=== PATIENT | male | born 1950 | race Caucasian/White ===

== ENCOUNTER 2018-08-14 13:24 | Outpatient (RCR) | payer OTHER ==
[2018-07-24 16:38] LABS: BASOPHILS % (AUTO) 0 % (0-10); EOSINOPHILS # (AUTO) 0.2 10^3/uL (0.0-0.3); EOSINOPHILS % (AUTO) 3 % (0-10); HEMATOCRIT 42 % (40-54); HEMOGLOBIN 14.3 G/DL (13.3-17.7); LYMPHOCYTES # (AUTO) 2.2 X 10^3 (1.0-4.0); LYMPHOCYTES % (AUTO) 32 % (12-44); MEAN CORPUSCULAR HEMOGLOBIN 32 PG (25-34); MEAN CORPUSCULAR HGB CONC 34 G/DL (32-36); MEAN CORPUSCULAR VOLUME 93 FL (80-99); MEAN PLATELET VOLUME 9.9 FL (7.4-10.4); MONOCYTES # (AUTO) 0.6 X 10^3 (0.0-1.0); MONOCYTES % (AUTO) 9 % (0-12); NEUTROPHILS # (AUTO) 3.9 X 10^3 (1.8-7.8); NEUTROPHILS % (AUTO) 56 % (42-75); PLATELET COUNT 87 10^3/uL (130-400); RED CELL DISTRIBUTION WIDTH 15.1 % (10.0-14.5); WHITE BLOOD COUNT 6.8 10^3/uL (4.3-11.0)
[2018-07-24 16:50] LABS: INR 1.8 (0.8-1.4); PROTHROMBIN TIME PATIENT 21.1 SEC (12.2-14.7)
[2018-07-24 16:57] LABS: BAND NEUTROPHILS 0 %; BASOPHILS % (MANUAL) 0 %; EOSINOPHILS % (MANUAL) 3 %; LYMPHOCYTES % (MANUAL) 29 %; MONOCYTES % (MANUAL) 5 %; NEUTROPHILS % (MANUAL) 63 %; RBC MORPH NORMAL
[2018-07-24 17:05] LABS: ALANINE AMINOTRANSFERASE 27 U/L (0-55); ALBUMIN 4.2 GM/DL (3.2-4.5); ALKALINE PHOSPHATASE 112 U/L (40-136); BILIRUBIN,TOTAL 0.7 MG/DL (0.1-1.0); BUN/CREATININE RATIO 16; CALCIUM 9.4 MG/DL (8.5-10.1); CARBON DIOXIDE 23 MMOL/L (21-32); CHLORIDE 103 MMOL/L (98-107); CREATININE SERUM 0.91 MG/DL (0.60-1.30); GFR ESTIMATED > 60; GLUCOSE 149 MG/DL (70-105); POTASSIUM 3.3 MMOL/L (3.6-5.0); SODIUM 133 MMOL/L (135-145); TOTAL PROTEIN 7.6 GM/DL (6.4-8.2)
[2018-07-28 06:46] LABS: HEPATITIS C ANTIBODY C Non-Reactive (Non-Reactive)
== END 2018-10-22 | disposition home or self-care (01) ==
LOC: ONC 13:24
PROVIDERS: ATTEND Internal Medicine Hematology & Oncology
DX: D69.6 Thrombocytopenia, unspecified (principal); D64.9 Anemia, unspecified; I48.91 Unspecified atrial fibrillation; J44.9 Chronic obstructive pulmonary disease, unspecified; I10 Essential (primary) hypertension; R91.8 Other nonspecific abnormal finding of lung field; F17.210 Nicotine dependence, cigarettes, uncomplicated; E66.9 Obesity, unspecified; Z68.34 Body mass index [BMI] 34.0-34.9, adult; Z79.01 Long term (current) use of anticoagulants; Z79.899 Other long term (current) drug therapy
CPT/HCPCS: 36415; 80053; 80074; 82607; 82728; 82746; 83540; 85007; 85027; 85610; 99213; 99214

== ENCOUNTER → 2019-08-06 | Outpatient (CLI) | payer OTHER ==
--- NOTE | 2019-08-06 10:01 | Diagnostic Imaging Report ---
PROCEDURE: CT abdomen and pelvis without contrast. TECHNIQUE: Multiple contiguous axial images were obtained through the abdomen and pelvis without the use of intravenous contrast. Auto Exposure Controls were utilized during the CT exam to meet ALARA standards for radiation dose reduction. INDICATION: Chronic microhematuria. No prior studies are available for comparison. There are interstitial fibrotic changes in both lung bases. There is a density in the right lower lobe just above the diaphragm measuring 2 cm in size. A small lung mass cannot be entirely excluded. This was not definitely seen on prior PET/CT study from 08/02/2015. The liver does have somewhat nodular contour, raising question of cirrhosis. No discrete liver mass is detected. Gallbladder is unremarkable. No biliary ductal dilatation is seen. Pancreas and spleen are unremarkable. No discrete adrenal mass is seen. There is some left adrenal generalized enlargement. Both kidneys contain cortical low densities, suggestive of cysts. No definite calculi are seen. There is no hydronephrosis. Aorta is heavily calcified but non-aneurysmal. Spleen is mildly enlarged at 14.7 cm. No central retroperitoneal or mesenteric lymphadenopathy is seen. The bowel loops are of normal caliber. There is extensive diverticulosis of the descending and sigmoid colon but no evidence of acute diverticulitis. There is a small amount of free fluid in the perihepatic region as well as a small amount of free fluid in the pelvis. No well-formed fluid collection is identified. Bladder is unremarkable. Prostate is enlarged. No definite pelvic lymphadenopathy is seen. IMPRESSION: 1. 2 cm right lower lobe pulmonary nodular density. Small lung neoplasm cannot be entirely excluded. PET/CT would be useful for further evaluation. 2. Nodular contour to the liver, raising question of cirrhosis. No discrete liver mass is detected. 3. Bilateral renal cortical low density suggestive of cysts. No calculi or hydronephrosis is seen. 4. Uncomplicated diverticulosis. 5. Prostatomegaly. 6. Mild abdominal and pelvic ascites. Dictated by: Dictated on workstation # [id number]
== END ==
LOC: RAD FS 09:25
PROVIDERS: ATTEND Urology
DX: R91.8 Other nonspecific abnormal finding of lung field (principal); K57.30 Diverticulosis of large intestine without perforation or abscess without bleeding; N40.0 Benign prostatic hyperplasia without lower urinary tract symptoms; R18.8 Other ascites
CPT/HCPCS: 74176

== ENCOUNTER → 2020-06-20 | Outpatient (CLI) | payer OTHER ==
[2020-06-20 12:03] LABS: ABG BASE EXCESS 0.5 MMOL/L (-2.5-2.5); ABG OXYGEN SATURATION 94 % (94-100); ABG PCO2 36 MMHG (35-45); ABG PH 7.44 (7.37-7.43); ABG PO2 66 MMHG (79-93); ABG TCO2 25.4 MMOL/L (21.0-31.0); ALLENS TEST YES-POS; INSPIRED O2 5L; PATIENT TEMP 36.8; VENTILATOR NO
== END ==
LOC: CATH 11:20
PROVIDERS: ATTEND Nurse Practitioner Family
DX: Z01.812 Encounter for preprocedural laboratory examination (principal); Z20.822 Contact with and (suspected) exposure to COVID-19
CPT/HCPCS: 82805; U0002; 87635

== ENCOUNTER → 2020-06-20 | Outpatient (CLI) | payer OTHER ==
[~2020-06-20] MED LIST: CATHETER FLUSH 10 ML SYR IV PRN; HOLD METFORMIN - RECEIVED CONTRAST 20 ML VIAL IV SCH; IOHEXOL 350 MG/ML 100 ML (OMNIPAQUE 350) VIAL IV ONE; NS 100 ML (IVPB) BAG IV ONE
--- NOTE | 2020-06-20 12:17 | Diagnostic Imaging Report ---
PROCEDURE: CT chest, abdomen, and pelvis with contrast. TECHNIQUE: Multiple contiguous axial images were obtained through the chest, abdomen, and pelvis after the administration of intravenous contrast. Auto Exposure Controls were utilized during the CT exam to meet ALARA standards for radiation dose reduction. INDICATION: Lung mass. COMPARISON: There are no prior CT chest examinations available for comparison. FINDINGS: The CT abdomen/pelvis exam performed at [facility] on 08/06/2019 did note a 2 cm right lower lobe pulmonary nodule. The possibility that this was neoplastic in nature was raised. On this exam that nodule has increased in size and now measures 3.1 x 4.1 cm. Consequently this mass should be considered neoplastic until proven otherwise. There is also a 3.3 x 3.0 cm subcarinal mass. This area was not included on the prior exam but this finding may well be neoplastic as well. There is no other mediastinal or hilar adenopathy noted. There is no other lung mass identified. The chronic pulmonary changes involving the lung bases seen previously are again evident. There are also faint groundglass densities in both upper lobes as well as bullous/emphysematous disease of both upper lobes. There is no confluent pneumonia identified nor is there any sign of a pleural effusion. The heart is enlarged but stable. Coronary artery calcifications are noted. The aorta is not abnormally dilated and there is no sign of a dissection. There is no defect within the pulmonary arteries to indicate a pulmonary embolus. The thyroid gland where visualized is unremarkable. Images through the abdomen again show that the liver is mildly enlarged but stable in size when compared to the prior study. The liver does have somewhat of a nodular contour and the possibility of cirrhosis should be considered. The spleen, pancreas, adrenals, gallbladder, kidneys, aorta and inferior vena cava show no sign of an acute abnormality. The suspected renal cysts seen on the prior study are again evident and no different. The stomach is partially filled with fluid and difficult to assess. There is no pelvic mass or free fluid collection noted. The urinary bladder and prostate gland are grossly unremarkable. There is diverticulosis of the sigmoid colon but there is no sign of acute diverticulitis. The appendix was visualized and is not abnormally thickened. The bone windows show no evidence for a fracture or for a destructive lesion. IMPRESSION: 1. In the interval since the prior exam the mass in the right lung base has increased in size and consequently, should be considered neoplastic until proven otherwise. There may also be neoplastic involvement of the subcarinal region. If further imaging is desired, then PET CT would be recommended. 2. There is no other evidence for malignancy involving the chest, abdomen or pelvis and there is no sign of an acute abnormality. 3. There are chronic pulmonary changes present as well as cardiomegaly and coronary artery disease. 4. The appearance of the liver does raise the question of cirrhosis. Dictated by: Dictated on workstation # [id number]
== END ==
LOC: RT 10:59
PROVIDERS: ATTEND Nurse Practitioner Family
DX: Z13.83 Encounter for screening for respiratory disorder NEC (principal); R93.89 Abnormal findings on diagnostic imaging of other specified body structures; I51.7 Cardiomegaly; I25.10 Atherosclerotic heart disease of native coronary artery without angina pectoris
CPT/HCPCS: 36600; 71260; 74177

== ENCOUNTER → 2020-06-21 | Outpatient (CLI) | payer OTHER ==
[~2020-06-21] MED LIST changes: -CATHETER FLUSH 10 ML SYR IV PRN; -HOLD METFORMIN - RECEIVED CONTRAST 20 ML VIAL IV SCH; -IOHEXOL 350 MG/ML 100 ML (OMNIPAQUE 350) VIAL IV ONE; -NS 100 ML (IVPB) BAG IV ONE; +RT-ALBUTEROL SULF 2.5 MG/3 ML PRE-MIX VIAL INH ONE
== END ==
LOC: RT 09:35
PROVIDERS: ATTEND Internal Medicine Critical Care Medicine
DX: Z13.83 Encounter for screening for respiratory disorder NEC (principal)
CPT/HCPCS: 94060; 94726; 94729

== ENCOUNTER → 2020-06-27 | Outpatient (CLI) | payer OTHER | LOC: LABNPT 08:37 | PROVIDERS: ATTEND Internal Medicine Critical Care Medicine | DX: Z01.89 Encounter for other specified special examinations (principal); Z20.822 Contact with and (suspected) exposure to COVID-19 | CPT/HCPCS: 87635 ==

== ENCOUNTER 2020-06-29 06:56 | Day surgery (SDC) | payer OTHER ==
[~2020-06-29] VITALS: Ht 182.9 cm; Wt 102.3 kg
[2020-06-29] VITALS (10 sets, daily range): BP systolic 103–142; BP diastolic 63–100
[2020-06-29] MEDS ORDERED: LIDOCAINE PF 1% 2 ML VIAL IJ ONE (06:57)
[2020-06-29] MEDS ORDERED: LIDOCAINE PF 2% 5 ML (XYLOCAINE) VIAL INJ ONE (06:57)
[2020-06-29] MEDS ORDERED: proPOfol 200 MG/20 ML (DIPRIVAN) VIAL IV ONE (06:58)
[2020-06-29] MEDS ORDERED: fentaNYL INJECTION 100 MCG/2 ML AMP ONE (06:59)
[2020-06-29] MEDS ORDERED: LIDOCAINE PF 2% 5 ML (XYLOCAINE) VIAL ONE (06:59)
[2020-06-29] MEDS ORDERED: ONDANSETRON 4 MG/2 ML (SDV) Z0FRAN ONE (06:59)
[2020-06-29] MEDS ORDERED: MIDAZOLAM 2 MG/2 ML (VERSED) VIAL ONE (06:59)
[2020-06-29] MEDS ORDERED: ROCURONIUM 10 MG/ML 5 ML SYRINGE IV ONE (06:59)
[2020-06-29] MEDS ORDERED: LACTATED RINGERS 1,000 ML IV ONE (07:04)
[2020-06-29] MEDS ORDERED: LACTATED RINGERS 1,000 ML IV STA (07:07)
[2020-06-29] MEDS ORDERED: RT-ALBUTEROL SULF 2.5 MG/3 ML PRE-MIX VIAL ONE (07:09)
--- NOTE | 2020-06-29 07:51 | Progress Note-Pre Operative ---
Pre-Operative Progress Note H&P Reviewed The H&P was reviewed, patient examined and no changes noted. Time Seen by Provider: 08:00 Date H&P Reviewed: Jun 29, 2020 Time H&P Reviewed: 07:50 Pre-Operative Diagnosis: Lung mass FRITZ SU DO Jun 29, 2020 07:51
[2020-06-29] MEDS ORDERED: NEOSTIGMINE 3 MG/3 ML VIAL ONE (08:23)
[2020-06-29] MEDS ORDERED: GLYCOPYRROLATE 0.2 MG/ML (ROBINUL) 2 ML VIAL ONE (08:23)
--- NOTE | 2020-06-29 08:44 | Pulmonary Procedures ---
Pulmonary Procedures Date of Procedure Date of Service: Jun 29, 2020 Bronch Bronchoscopy assisted with fluoroscopy bilateral wash, RLL BAL, mainstem ivonne brush were obtained. EBUS scope then advanced Mediastinum US and transbronchial needle bx of station 7 lymph nodes obtained under direct US guidance. Preop DX: [mediastinal lymphadenopathy and lung mass PostOP DX: same. No endobronchial lesion noted. Complications: None Pt was sedated per anesthesia. Bronchoscopy was advanced through the ED tube and an anatomical undertaken down to the segmental bronchi bilaterally. No endobronchial lesions noted. Bronchoscopy assisted with fluoroscopy bilateral wash, RLL BAL, mainstem ivonne brush were obtained. EBUS scope then advanced Mediastinum US and transbronchial needle bx of station 7 lymph nodes obtained under direct US guidance. Pt tolerated procedure well. No complications noted. FRITZ SU DO Jun 29, 2020 08:44
--- NOTE | 2020-06-29 09:12 | Diagnostic Imaging Report ---
Indication: Post bronchoscopy. Frontal chest obtained at 8:56 a.m. There is no previous study for comparison. There is cardiomegaly. There is central vascular congestion with interstitial edema and/or fibrotic change. There is no pneumothorax post bronchoscopy. Impression: Diffuse interstitial infiltrate versus edema versus fibrotic change. Cardiomegaly and central vascular congestion. There is no pneumothorax following bronchoscopy. Dictated by: Dictated on workstation # [id number]
--- NOTE | 2020-06-29 09:18 | Diagnostic Imaging Report ---
INDICATION: Fluoroscopy utilized by Dr. Wade for bronchoscopy. FINDINGS: Single film shows bronchoscope present in the right upper lung. IMPRESSION: 1.8 seconds fluoroscopy utilized for bronchoscopy. Dictated by: Dictated on workstation # [id number]
[2020-06-29] MEDS ORDERED: APIX2.5T PO (09:43)
[2020-06-29] MEDS ORDERED: IPRA3AMP31 IH (09:43)
[2020-06-29] MEDS ORDERED: FLUO20CA42 PO (09:43)
[2020-06-29] MEDS ORDERED: OMEP20TA7 PO (09:43)
[2020-06-29] MEDS ORDERED: LORA-53 PO (09:43)
[2020-06-29] MEDS ORDERED: PRAZ2CAP2 PO (09:43)
[2020-06-29] MEDS ORDERED: NITR0.3T7 SL (09:43)
[2020-06-29] MEDS ORDERED: MONT10TA97 PO (09:43)
[2020-06-29] MEDS ORDERED: ROSU10TA28 PO (09:43)
[2020-06-29] MEDS ORDERED: DOCU100C37 PO (09:43)
[2020-06-29] MEDS ORDERED: ALPR0.254 PO (09:43)
[2020-06-29] MEDS ORDERED: FERR325T24 PO (09:43)
[2020-06-29] MEDS ORDERED: FINA5TAB6 PO (09:43)
[2020-06-29] MEDS ORDERED: HYDR-3857 PO (09:43)
[2020-06-29] MEDS ORDERED: DILT-27 PO (09:43)
[2020-06-29] MEDS ORDERED: CARV6.252 PO (09:43)
[2020-06-29] MEDS ORDERED: LISI2.5T PO (09:43)
[2020-06-29] MEDS ORDERED: [UNRECOGNIZED DRUG - CODE] PO (09:43)
--- NOTE | 2020-06-29 10:32 | Anesthesia-General Post-Op ---
General Patient Condition Mental Status/LOC: Same as Preop Cardiovascular: Satisfactory Nausea/Vomiting: Absent Respiratory: Satisfactory Pain: Controlled Complications: Absent Post Op Complications Complications None Follow Up Care/Instructions Patient Instructions None needed. Anesthesia/Patient Condition Patient Condition Patient is doing well, no complaints, stable vital signs, no apparent adverse anesthesia problems. No complications reported per nursing. TED ONEAL CRNA Jun 29, 2020 10:32
== END 2020-06-29 10:10 | disposition home or self-care (01) ==
LOC: ENDO 06:56
PROVIDERS: ATTEND Internal Medicine Critical Care Medicine
DX: R59.1 Generalized enlarged lymph nodes (principal); I10 Essential (primary) hypertension; I25.10 Atherosclerotic heart disease of native coronary artery without angina pectoris; I48.91 Unspecified atrial fibrillation; J44.9 Chronic obstructive pulmonary disease, unspecified; K21.9 Gastro-esophageal reflux disease without esophagitis; D64.9 Anemia, unspecified; M19.90 Unspecified osteoarthritis, unspecified site; E66.9 Obesity, unspecified; Z68.30 Body mass index [BMI] 30.0-30.9, adult; Z79.899 Other long term (current) drug therapy; Z88.5 Allergy status to narcotic agent; Z88.8 Allergy status to other drugs, medicaments and biological substances
CPT/HCPCS: 71045; 76000; 87015; 87070; 87101; 87116; 87205; 87206; 88112; 88173; 88305; 88312; 94640

== ENCOUNTER 2020-07-19 08:08 | Outpatient (CLI) | payer OTHER ==
[~2020-07-19] VITALS: Ht 182.9 cm; Wt 103.6 kg
[2020-07-19] VITALS (15 sets, daily range): BP systolic 121–145; BP diastolic 66–92
[~2020-07-19 08:08] MED LIST changes: +ALPR0.254 PO; +APIX2.5T PO; +CARV6.252 PO; +DILT-27 PO; +DOCU100C37 PO; +FERR325T24 PO; +FINA5TAB6 PO; +FLUO20CA42 PO; +HYDR-3857 PO; +IPRA3AMP31 IH; +LISI2.5T PO; +LORA-53 PO; +MONT10TA97 PO; +NITR0.3T7 SL; +OMEP20TA7 PO; +PRAZ2CAP2 PO; +ROSU10TA28 PO; -RT-ALBUTEROL SULF 2.5 MG/3 ML PRE-MIX VIAL INH ONE; +[UNRECOGNIZED DRUG - CODE] PO
[2020-07-19] MEDS ORDERED: NS IV 1000 ML 1,000 ML IV STA (08:13)
[2020-07-19] MEDS ORDERED: MIDAZOLAM 2 MG/2 ML (VERSED) VIAL IVP ONE (08:15)
[2020-07-19] MEDS ORDERED: LIDOCAINE 1% INJ 20 ML 20 ML VIAL INJ ONE (08:15)
[2020-07-19] MEDS ORDERED: fentaNYL INJECTION 100 MCG/2 ML AMP IVP ONE (08:15)
[2020-07-19] MEDS ORDERED: CATHETER FLUSH 10 ML SYR IV PRN (08:30)
[2020-07-19 08:38] LABS: BASOPHILS % (AUTO) 0 % (0-10); EOSINOPHILS # (AUTO) 0.1 10^3/uL (0.0-0.3); EOSINOPHILS % (AUTO) 2 % (0-10); HEMATOCRIT 35 % (40-54); HEMOGLOBIN 11.7 g/dL (13.3-17.7); LYMPHOCYTES # (AUTO) 1.1 10^3/uL (1.0-4.0); LYMPHOCYTES % (AUTO) 19 % (12-44); MEAN CORPUSCULAR HEMOGLOBIN 32 pg (25-34); MEAN CORPUSCULAR HGB CONC 33 g/dL (32-36); MEAN CORPUSCULAR VOLUME 94 fL (80-99); MEAN PLATELET VOLUME 9.6 fL (9.0-12.2); MONOCYTES # (AUTO) 0.5 10^3/uL (0.0-1.0); MONOCYTES % (AUTO) 9 % (0-12); NEUTROPHILS # (AUTO) 4.1 10^3/uL (1.8-7.8); NEUTROPHILS % (AUTO) 70 % (42-75); PLATELET COUNT 95 10^3/uL (130-400); WHITE BLOOD COUNT 5.9 10^3/uL (4.3-11.0)
[2020-07-19 08:49] LABS: INR 1.1 (0.8-1.4); PROTHROMBIN TIME PATIENT 14.4 SEC (12.2-14.7)
[2020-07-19] MEDS ORDERED: IPRA4AER IH (08:51)
[2020-07-19] MEDS ORDERED: ACHD5005 PO (08:51)
[2020-07-19] MEDS ORDERED: HYDROcodone/APAP 5 MG/325 MG (LORTAB) TAB PO PRN (11:15)
--- NOTE | 2020-07-19 11:37 | Diagnostic Imaging Report ---
INDICATION: Liver mass. Patient presents for biopsy. TECHNIQUE: All CT scans use one or more of the following dose optimizing techniques: automated exposure control, MA and/or KvP adjustment based on patient size and exam type or iterative reconstruction. DETAILS OF THE PROCEDURE: The patient was brought to the CT suite and placed on the table in the supine position. Axial imaging through abdomen was performed to evaluate for an appropriate entry site. The right abdomen was then prepped and draped in the usual sterile fashion. A small amount of 1% lidocaine was utilized for local anesthesia. The procedure was performed utilizing conscious sedation with constant patient monitoring by Radiology nursing. The patient was given a total of 50 mg of fentanyl intravenously and 0.5 mg of Versed intravenously. The total procedure time was approximately 15 minutes. An 18-gauge coaxial Temno needle was advanced and placed with its tip within the low-density lesion in the left lobe of the liver. Multiple core biopsies were obtained. The needle was then repositioned and additional core biopsies were obtained. A blood patch was injected during needle removal. Hemostasis was obtained using manual compression. The patient tolerated the procedure well and left the Department in stable condition. IMPRESSION: Successful CT-guided core biopsy of a left lobe liver mass utilizing conscious sedation. Pathology results are currently pending. Dictated by: Dictated on workstation # [id number]
--- NOTE | 2020-07-19 11:38 | Pre-Op Note & Conscious Sedat ---
Pre-Operative Progress Note H&P Reviewed The H&P was reviewed, patient examined and no changes noted. Date H&P Reviewed: Jul 19, 2020 Time H&P Reviewed: 09:00 Pre-Op Diagnosis: liver mass Conscious Sedation Pre-Proced Time 09:00 ASA Score 2 For ASA 3 and 4: Consider anesthesia and medical clearance. Also, for patients with a history of failed moderate sedation consider anesthesia. Airway Lungs Heart ASA score ASA 1: a normal healthy patient ASA 2: a patient with a mild systemic disease (mid diabetes, controlled hypertension, obesity ASA 3: a patient with a severe systemic disease that limits activity (angina, COPD, prior Myocardial infarction) ASA 4: a patient with an incapacitating disease that is a constant threat to life (CHF, renal failure) ASA 5: a moribund patient not expected to survive 24 hrs. (ruptured aneurysm) ASA 6: a declared brain- patient whose organs are being harvested. For emergent operations, add the letter E after the classification Mallampati Classification Grade 2 Sedation Plan Analgesia, Amnesia, Plan communicated to team members, Discussed options with patient/fam, Discussed risks with patient/fam The patient is an appropriate candidate to undergo the planned procedure, sedation, and anesthesia. The patient immediately re-assessed prior to indication. ELIAZAR PRITCHARD MD Jul 19, 2020 11:38
== END 2020-07-19 13:05 | disposition home or self-care (01) ==
LOC: SDC 08:08
PROVIDERS: ATTEND Nurse Practitioner Family
DX: R16.0 Hepatomegaly, not elsewhere classified (principal); R93.2 Abnormal findings on diagnostic imaging of liver and biliary tract
CPT/HCPCS: 36415; 77012; 85025; 85610; 85730; 99156

== ENCOUNTER → 2020-08-22 | Outpatient (CLI) | payer OTHER ==
[~2020-08-22] MED LIST changes: +ACHD5005 PO; +CATHETER FLUSH 10 ML SYR IV PRN; +HOLD METFORMIN - RECEIVED CONTRAST 20 ML VIAL IV SCH; +IOHEXOL 350 MG/ML 100 ML (OMNIPAQUE 350) VIAL IV ONE; +IPRA4AER IH; +MONT10TA32 PO; -MONT10TA97 PO; +NS 100 ML (IVPB) BAG IV ONE
--- NOTE | 2020-08-22 15:49 | Diagnostic Imaging Report ---
PROCEDURE: CT head with and without contrast. TECHNIQUE: Multiple contiguous axial images were obtained through the brain before and after the administration of intravenous contrast. Auto Exposure Controls were utilized during the CT exam to meet ALARA standards for radiation dose reduction. INDICATION: Dizziness. Patient has lung cancer. No prior studies are available for comparison. Ventricles and sulci are within normal limits. No sulcal effacement or midline shift is identified. No acute intra-axial or extra-axial hemorrhage is detected. No abnormal enhancement is identified following contrast administration. Cisterns are patent. Visualized paranasal sinuses are clear. IMPRESSION: Unremarkable pre and postcontrast CT of the brain. Dictated by: Dictated on workstation # [id number]
== END ==
LOC: RAD FS 10:08
PROVIDERS: ATTEND Internal Medicine Hematology & Oncology
DX: C34.91 Malignant neoplasm of unspecified part of right bronchus or lung (principal); R42 Dizziness and giddiness; R26.89 Other abnormalities of gait and mobility
CPT/HCPCS: 70470

== ENCOUNTER 2020-09-06 07:48 | Outpatient (CLI) | payer OTHER ==
[~2020-09-06] VITALS: Ht 182.9 cm; Wt 104.5 kg
[~2020-09-06 07:48] MED LIST changes: -CATHETER FLUSH 10 ML SYR IV PRN; -HOLD METFORMIN - RECEIVED CONTRAST 20 ML VIAL IV SCH; -IOHEXOL 350 MG/ML 100 ML (OMNIPAQUE 350) VIAL IV ONE; -NS 100 ML (IVPB) BAG IV ONE
== END 2020-09-06 12:53 | disposition home or self-care (01) ==
LOC: PREOP 07:48
PROVIDERS: ATTEND Surgery
DX: Z01.818 Encounter for other preprocedural examination (principal)

== ENCOUNTER 2020-09-08 09:33 | Day surgery (SDC) | payer OTHER ==
[2020-09-08] VITALS (7 sets, daily range): BP systolic 114–191; BP diastolic 73–107
[~2020-09-08] VITALS: Ht 182.9 cm; Wt 104.5 kg
[2020-09-08] MEDS ORDERED: LACTATED RINGERS 1,000 ML IV PRN (10:15)
[2020-09-08] MEDS ORDERED: ceFAZolin INJECTION 1,000 MG in WATER (STERILE) FOR INJECTION 10 ML IV ONE (10:15)
--- NOTE | 2020-09-08 10:20 | Progress Note-Pre Operative ---
Pre-Operative Progress Note H&P Reviewed The H&P was reviewed, patient examined and no changes noted. Date Seen by Provider: Sep 08, 2020 Time Seen by Provider: 10:20 Date H&P Reviewed: Sep 08, 2020 Time H&P Reviewed: 10:20 Pre-Operative Diagnosis: lung cancer REED JOHNSON DO Sep 08, 2020 10:20
[2020-09-08] MEDS ORDERED: LIDOCAINE/EPI 1%-1:100,000 (XYLOCAINE) 20ML ONE ×2 (11:04→11:44)
[2020-09-08] MEDS ORDERED: HEParin (CENTRAL IV FLUSH) 500 UNIT/5 ML SYR ONE (11:04)
[2020-09-08] MEDS ORDERED: 0.9% SODIUM CHLORIDE PF INJ 20 ML VIAL ONE (11:04)
[2020-09-08] MEDS ORDERED: PROPOFOL INJECTION 50 ML IV ONE (11:15)
[2020-09-08] MEDS ORDERED: MIDAZOLAM 2 MG/2 ML (VERSED) VIAL ONE (11:30)
--- NOTE | 2020-09-08 12:19 | Progress Note-Post Operative ---
Post-Operative Progess Note Surgeon (s)/Livestock Slaughterer (s) Surgeon REED JOHNSON DO Livestock Slaughterer: na Pre-Operative Diagnosis lung cancer Post-Operative Diagnosis same Procedure & Operative Findings Date of Procedure 09/08/20 Procedure Performed/Findings PROCEDURE: Left internal jugular port placement using ultrasound guidance. COMPLICATIONS: None. INDICATIONS: The patient is a 70 year old male with lung cancer. Patient understands the risks and benefits of port placement and wished to proceed with the procedure. Consent was signed on the chart. PROCEDURE: The patient was taken to the operating suite, was prepped and draped in the sterile fashion. A surgical pause was performed. Ultrasound was used to locate the internal jugular vein. Once located anesthetic was infiltrated above it. Using micro-access kit, the right internal vein was accessed. Dark nonpulsatile blood was withdrawn. The wire was inserted. Fluoroscopy assured proper placement. The needle was removed. The micro-access dilator was advanced over the wire and the wire was removed. The regular wire was inserted and fluoroscopy assured proper placement. The wire was then secured. Local anesthetic was used to anesthetize from the neck for tunneling down to the right chest and for pocket creation. A 15 blade scalpel was used to make an incision over the left chest. Cautery was used to dissect down to the pectoral fascia. A pocket was created with blunt dissection. The dilator sheath was then advanced over the wire under fluoroscopy and the dilator and wire were removed. The Groshong catheter was inserted through the sheath and the sheath was then removed. The Groshong wire was removed. The catheter was then tunneled to the right chest pocket. Fluoroscopy was used to cut to length and this was then attached to the port which was then placed within the pocket. The port was then accessed without difficulty. It was then flushed with saline and then heparin. The subcutaneous tissues were then reapproximated using 3-0 Vicryl. The areas were then washed and dried. Skin Affix was placed over incision. The insertion point of the neck Skin Affix was placed over the incision. The patient tolerated the procedure well without complication and was taken to recovery room in stable condition. Chest x-ray is pending. Anesthesia Type mac c local Estimated Blood Loss Estimated blood loss (mL): min Specimens/Packing Specimens Removed REED Gómez DO Sep 08, 2020 12:19
--- NOTE | 2020-09-08 12:21 | Discharge Inst-Simple/Standard ---
Discharge Inst-Standard Discharge Medications New, Converted or Re-Newed RX: RX on Chart Patient Instructions/Follow Up Plan of Care/Instructions/FU: 2-3 weeks Augusto Activity as Tolerated: No Discharge Diet: Regular Diet Other Inst to Patient Follow up Appt: Make appointment for 2-3 week. Instructions: No lifting greater than 10 pounds. No strenuous activity. May shower in 24 hours, no tub bath or soaking. Use incentive spirometer at home as directed. No Smoking Skin/Wound Care: You have special glue over your incision that will fall off on it's own. Ice pack over incision for 15 min and off 30 min and repeat for first 48 hours. This is to reduce swelling and discomfort. Symptoms to Report: Appetite Changes, Extremity Discoloration, Numbness/Tingling, Swelling Increased, Bleeding Excessive, Eyesight Changes, Pain Increased, Urine Color Change, Constipation(Persistent), Fever over 101 degree F, Pain/Pressure in chest, Urinating Difficulty, Cough Up/Vomit Blood, Heart Beat Irreg/Pounding, Pain/Pressure in jaw, Vaginal Bleeding Increase, Cramps in feet or legs, Lightheadedness, Pain/Pressure in shoulder, Diarrhea(Persistent), Memory Changes Suddenly, Questions/Concerns, Weight gain consecutive days, Dizziness/Fainting, Nausea/Vomiting, Shortness of Breath, Weight gain over 2 pounds If questions or concerns contact your physician Or seek help at emergency department. REED JOHNSON DO Sep 08, 2020 12:21
[2020-09-08] MEDS ORDERED: ONDANSETRON 4 MG/2 ML (SDV) Z0FRAN IVP PRN (12:45)
--- NOTE | 2020-09-08 12:48 | Anesthesia-General Post-Op ---
MAC Patient Condition Mental Status/LOC: Same as Preop Cardiovascular: Satisfactory Nausea/Vomiting: Absent Respiratory: Satisfactory Pain: Controlled Complications: Absent Post Op Complications Complications None Follow Up Care/Instructions Patient Instructions None needed. Anesthesiology Discharge Order Discharge Order Patient is doing well, no complaints, stable vital signs, no apparent adverse anesthesia problems. MARJAN NEWMAN DO Sep 08, 2020 12:48
--- NOTE | 2020-09-08 13:53 | Diagnostic Imaging Report ---
INDICATION: Port-A-Cath placement. COMPARISON: None. Total fluoroscopy time: 34 seconds. Total number of fluoroscopic images saved: 1 FINDINGS: Fluoroscopic guidance was provided intraoperatively during Port-A-Cath placement. Images provided show left internal jugular venous approach. Central tip of the catheter is not well visualized and may extend beyond the [id number]. Evaluation for pneumothorax is suboptimal given fluoroscopic modality. Please note, interpreting radiologist was not present during the procedure. IMPRESSION: 1. Fluoroscopic guidance provided during Port-A-Cath placement. Dictated by: Dictated on workstation # [id number]
--- NOTE | 2020-09-08 15:33 | Diagnostic Imaging Report ---
INDICATION: Status post Port-A-Cath placement. COMPARISON: 06/29/2020 FINDINGS: Single frontal radiographic view of the chest was obtained and demonstrates interval placement of left internal jugular Port-A-Cath, tip which terminates at the cavoatrial junction. Lungs continue to show diffuse coarse prominence of the interstitium. This appears to be chronic change when compared to prior exams. There is no large effusion or pneumothorax. Cardiac silhouette remains moderately enlarged. Pulmonary vasculature however is within normal limits. Osseous structures show no gross acute abnormalities. IMPRESSION: 1. New left internal jugular Port-A-Cath with tip at the cavoatrial junction. No pneumothorax. 2. Moderate cardiomegaly, but no evidence of failure. 3. Diffuse coarse interstitial opacities. Again, these appear to chronic when compared to prior exam and may be related to underlying chronic interstitial lung disease. Recurrent interstitial pneumonia or edema could be a consideration as well. Dictated by: Dictated on workstation # [id number]
== END 2020-09-08 13:45 | disposition home or self-care (01) ==
LOC: SDC 09:33
PROVIDERS: ATTEND Surgery
DX: C34.91 Malignant neoplasm of unspecified part of right bronchus or lung (principal); C78.7 Secondary malignant neoplasm of liver and intrahepatic bile duct; I10 Essential (primary) hypertension; I48.91 Unspecified atrial fibrillation; J44.9 Chronic obstructive pulmonary disease, unspecified; D64.9 Anemia, unspecified; M19.90 Unspecified osteoarthritis, unspecified site; I87.2 Venous insufficiency (chronic) (peripheral); E66.9 Obesity, unspecified; Z68.31 Body mass index [BMI] 31.0-31.9, adult; F17.210 Nicotine dependence, cigarettes, uncomplicated; Z79.899 Other long term (current) drug therapy; Z79.51 Long term (current) use of inhaled steroids; Z79.01 Long term (current) use of anticoagulants; Z88.5 Allergy status to narcotic agent; Z88.8 Allergy status to other drugs, medicaments and biological substances; Z85.828 Personal history of other malignant neoplasm of skin
CPT/HCPCS: 71045; 76000; 87081

== ENCOUNTER 2020-09-27 09:56 | Outpatient (RCR) | payer OTHER ==
[2020-08-15 10:57] LABS: EOSINOPHILS # (AUTO) 0.1 10^3/uL (0.0-0.3); EOSINOPHILS % (AUTO) 1 % (0-10); MONOCYTES # (AUTO) 0.5 10^3/uL (0.0-1.0)
[2020-08-15 10:59] LABS: BASOPHILS % (AUTO) 0 % (0-10); HEMATOCRIT 32 % (40-54); HEMOGLOBIN 10.6 g/dL (13.3-17.7); LYMPHOCYTES # (AUTO) 0.8 10^3/uL (1.0-4.0); LYMPHOCYTES % (AUTO) 15 % (12-44); MEAN CORPUSCULAR HEMOGLOBIN 31 pg (25-34); MEAN CORPUSCULAR HGB CONC 33 g/dL (32-36); MEAN CORPUSCULAR VOLUME 94 fL (80-99); MEAN PLATELET VOLUME 9.7 fL (9.0-12.2); MONOCYTES % (AUTO) 9 % (0-12); NEUTROPHILS % (AUTO) 74 % (42-75); PLATELET COUNT 99 10^3/uL (130-400); WHITE BLOOD COUNT 5.5 10^3/uL (4.3-11.0)
[2020-08-15 11:21] LABS: ALANINE AMINOTRANSFERASE 17 U/L (0-55); ALBUMIN 3.8 GM/DL (3.2-4.5); ALKALINE PHOSPHATASE 121 U/L (40-136); BILIRUBIN,TOTAL 0.8 MG/DL (0.1-1.0); BUN/CREATININE RATIO 15; CARBON DIOXIDE 23 MMOL/L (21-32); CHLORIDE 98 MMOL/L (98-107); CREATININE SERUM 0.79 MG/DL (0.60-1.30); GFR ESTIMATED > 60; GLUCOSE 96 MG/DL (70-105); POTASSIUM 3.8 MMOL/L (3.6-5.0); SODIUM 130 MMOL/L (135-145)
[2020-09-12 11:09] LABS: BASOPHILS % (AUTO) 0 % (0-10); HEMOGLOBIN 9.8 g/dL (13.3-17.7)
[2020-09-12 11:11] LABS: EOSINOPHILS % (AUTO) 1 % (0-10); HEMATOCRIT 29 % (40-54); LYMPHOCYTES # (AUTO) 0.7 10^3/uL (1.0-4.0); LYMPHOCYTES % (AUTO) 13 % (12-44); MEAN CORPUSCULAR HEMOGLOBIN 31 pg (25-34); MEAN CORPUSCULAR HGB CONC 34 g/dL (32-36); MEAN CORPUSCULAR VOLUME 93 fL (80-99); MEAN PLATELET VOLUME 10.3 fL (9.0-12.2); MONOCYTES # (AUTO) 0.4 10^3/uL (0.0-1.0); MONOCYTES % (AUTO) 8 % (0-12); NEUTROPHILS % (AUTO) 77 % (42-75); PLATELET COUNT 91 10^3/uL (130-400); WHITE BLOOD COUNT 5.2 10^3/uL (4.3-11.0)
[2020-09-12 11:26] LABS: ALANINE AMINOTRANSFERASE 15 U/L (0-55); ALBUMIN 3.6 GM/DL (3.2-4.5); ALKALINE PHOSPHATASE 123 U/L (40-136); BILIRUBIN,TOTAL 1.1 MG/DL (0.1-1.0); BUN/CREATININE RATIO 25; CARBON DIOXIDE 21 MMOL/L (21-32); CHLORIDE 101 MMOL/L (98-107); CREATININE SERUM 0.71 MG/DL (0.60-1.30); GFR ESTIMATED > 60; GLUCOSE 101 MG/DL (70-105); POTASSIUM 3.6 MMOL/L (3.6-5.0); SODIUM 131 MMOL/L (135-145); TOTAL PROTEIN 6.8 GM/DL (6.4-8.2)
[~2020-09-27] VITALS: Ht 182.9 cm; Wt 103.4 kg
[~2020-09-27 09:56] MED LIST changes: +IPILIMUMAB IV SCH; +NIVOLUMAB IV SCH; +NS IV 1000 ML (CANCER CTR) 1,000 ML IV SCH; +NS IV SCH
[2020-09-27 10:20] LABS: HEMOGLOBIN 9.1 g/dL (13.3-17.7)
[2020-09-27 10:22] LABS: BASOPHILS % (AUTO) 1 % (0-10); EOSINOPHILS # (AUTO) 0.3 10^3/uL (0.0-0.3); EOSINOPHILS % (AUTO) 4 % (0-10); HEMATOCRIT 28 % (40-54); LYMPHOCYTES % (AUTO) 16 % (12-44); MEAN CORPUSCULAR HEMOGLOBIN 30 pg (25-34); MEAN CORPUSCULAR HGB CONC 33 g/dL (32-36); MEAN CORPUSCULAR VOLUME 92 fL (80-99); MEAN PLATELET VOLUME 9.9 fL (9.0-12.2); MONOCYTES # (AUTO) 0.6 10^3/uL (0.0-1.0); MONOCYTES % (AUTO) 11 % (0-12); NEUTROPHILS % (AUTO) 67 % (42-75); PLATELET COUNT 120 10^3/uL (130-400); WHITE BLOOD COUNT 5.9 10^3/uL (4.3-11.0)
[2020-09-27 10:25] LABS: SMEAR SCAN COMMENT NO
[2020-09-27 10:39] LABS: BUN/CREATININE RATIO 26; CALCIUM 8.9 MG/DL (8.5-10.1); CARBON DIOXIDE 21 MMOL/L (21-32); CHLORIDE 96 MMOL/L (98-107); CREATININE SERUM 0.76 MG/DL (0.60-1.30); GFR ESTIMATED > 60; GLUCOSE 107 MG/DL (70-105); POTASSIUM 3.3 MMOL/L (3.6-5.0); SODIUM 128 MMOL/L (135-145)
[2020-09-27] MEDS ORDERED: FURO20TA4 PO (15:35)
[2020-09-27] MEDS ORDERED: POTA10TA6 PO (15:35)
== END 2020-11-13 | disposition home or self-care (01) ==
LOC: ONC 09:56
PROVIDERS: ATTEND Internal Medicine Hematology & Oncology
DX: C34.91 Malignant neoplasm of unspecified part of right bronchus or lung (principal); C78.7 Secondary malignant neoplasm of liver and intrahepatic bile duct; J44.9 Chronic obstructive pulmonary disease, unspecified; I48.20 Chronic atrial fibrillation, unspecified; F17.210 Nicotine dependence, cigarettes, uncomplicated; D63.0 Anemia in neoplastic disease; M19.90 Unspecified osteoarthritis, unspecified site; I11.9 Hypertensive heart disease without heart failure; Z98.890 Other specified postprocedural states; Z99.81 Dependence on supplemental oxygen
CPT/HCPCS: 36591; 80048; 80053; 83615; 84443; 85025; 96413; 96417; 99213; 99214

== ENCOUNTER 2020-09-27 11:36 | Emergency (ER) | payer MEDICARE, OTHER ==
[~2020-09-27] VITALS: Ht 182.8 cm; Wt 103.6 kg
[~2020-09-27 11:36] MED LIST changes: -IPILIMUMAB IV SCH; -NIVOLUMAB IV SCH; -NS IV 1000 ML (CANCER CTR) 1,000 ML IV SCH; -NS IV SCH
--- NOTE | 2020-09-27 11:57 | ED Respiratory ---
General Stated Complaint: LEG SWELLING,SOB Source: patient, family Exam Limitations: no limitations History of Present Illness Date Seen by Provider: Sep 27, 2020 Time Seen by Provider: 11:56 Initial Comments This is a chronically ill 70-year-old male who presents to the ER via POV per the cancer center recommendation. Patient was sent over due to increasing shortness of breath, peripheral edema, and orthopnea. He is currently being treated for metastatic lung cancer with immunotherapy at this time. His first dose was approximately 2 to 3 weeks ago And he was scheduled to have his second dose today. However due to his increasing symptoms of congestive failure he was recommended to have further evaluation emergency department. Spouse states that he has been having this increasing swelling and shortness of breath over the past 2 weeks shortly after receiving his first dose. States that they took a 7- hour drive to [place] and returned 2 days ago. His peripheral edema seem to worsen after the return drive. He has chronic shortness of breath and cough. Wears 5 L of oxygen continuously. Has been using 3 pillows at night to sleep. He is normally able to ambulate with a walker however due to his increasing shortness of breath he has been having difficulty with ambulation. He denies feeling short of breath with rest. He denies fever, chills, nausea, vomiting, a bdominal pain. Allergies and Home Medications Allergies Coded Allergies: lovastatin (Verified Allergy, Severe, Shortness of Breath, 07/19/20) pravastatin (Verified Allergy, Severe, Shortness of Breath, 07/19/20) simvastatin (Verified Allergy, Severe, Shortness of Breath, 07/19/20) aspirin (Verified Allergy, Intermediate, Vomiting, 07/19/20) trazodone (Verified Allergy, Intermediate, Vomiting, 07/19/20) Home Medications ALPRAZolam 0.25 Mg Tablet, 0.25 MG PO TID, (Reported) Albuterol/Ipratropium 4 Gm Aero, 2 PUFF IH DAILY PRN for WHEEZING, (Reported) Apixaban 2.5 Mg Tablet, 2.5 MG PO BID, (Reported) Bismuth Subsalicylate 262 Mg/15 Ml Oral.susp, 524 MG PO PRN, (Reported) Carvedilol 6.25 Mg Tablet, 6.25 MG PO BID, (Reported) Diltiazem HCl 120 Mg Cap.er.24h, 120 MG PO DAILY, (Reported) Docusate Sodium 100 Mg Capsule, 100 MG PO DAILY, (Reported) Ferrous Sulfate 325 Mg Tablet, 325 MG PO DAILY, (Reported) Finasteride 5 Mg Tablet, 5 MG PO DAILY, (Reported) Fluoxetine HCl 20 Mg Capsule, 20 MG PO DAILY, (Reported) Furosemide 20 Mg Tablet, 20 MG PO DAILY Prescribed by: PEREZ MUIR on 09/27/20 1535 Hydrocodone/Acetaminophen 1 Each Tablet, 1 TAB PO Q4H PRN for PAIN-MODERATE (5- 7), (Reported) Ipratropium/Albuterol Sulfate 3 Ml Ampul.neb, 3 ML IH Q4H PRN for SHORTNESS OF BREATH, (Reported) Lisinopril 2.5 Mg Tablet, 2.5 MG PO DAILY, (Reported) Loratadine 10 Mg Tab.rapdis, 10 MG PO DAILY, (Reported) Montelukast Sodium 10 Mg Tablet, 10 MG PO DAILY, (Reported) Nitroglycerin 0.3 Mg Tab.subl, 0.3 MG SL PRN, (Reported) Omeprazole 20 Mg Tablet.dr, 20 MG PO BID, (Reported) Potassium Chloride 10 Meq Tablet.er, 10 MEQ PO DAILY Prescribed by: PEREZ MUIR on 09/27/201534 Prazosin HCl 2 Mg Capsule, 2 MG PO TID, (Reported) Rosuvastatin Calcium 10 Mg Tablet, 10 MG PO DAILY, (Reported) Patient Home Medication List Home Medication List Reviewed: Yes Review of Systems Review of Systems Constitutional: see HPI EENTM: no symptoms reported Respiratory: cough, dyspnea on exertion; No hemoptysis; orthopnea, phlegm, short of breath Gastrointestinal: no symptoms reported Genitourinary: no symptoms reported Musculoskeletal: see HPI Skin: no symptoms reported Psychiatric/Neurological: No Symptoms Reported Hematologic/Lymphatic: See HPI, Anemia Past Lflqcdk-Ryhxfp-Cyarij Hx Patient Social History Type Used: Cigarettes 2nd Hand Smoke Exposure: No Recent Hopitalizations: No Immunizations Up To Date Tetanus Booster (TDap): Unknown Date of Pneumonia Vaccine: Apr 08, 2017 Date of Influenza Vaccine: Mar 10, 2020 Seasonal Allergies Seasonal Allergies: No Past Medical History Surgeries: Yes (skin cancer removed, heart ablation 2015) Respiratory: Yes (lung cancer) COPD Currently Using CPAP: No (PT WEARS 5L O2 AT ALL TIMES, NORMALLY) Currently Using BIPAP: No Cardiac: Yes Atrial Fibrillation, Hypertension Neurological: No Sexually Transmitted Disease: No Genitourinary: No Gastrointestinal: Yes (liver ca) Musculoskeletal: No Endocrine: No HEENT: Yes (cataracts removed) Cancer: Yes Liver, Lung, Skin Did You Recieve Any Treatments: No What Type of Treatment Did You: Surgical Intervention Psychosocial: No Integumentary: No Blood Disorders: No Physical Exam Vital Signs - First Documented 09/27/20 11:55 Temp 36.8 Pulse 92 Resp 20 B/P (MAP) 109/73 (85) Pulse Ox 94 O2 Delivery Nasal Cannula O2 Flow Rate 5.00 Capillary Refill : Height: '" Weight: lbs. oz. kg; 31.23 BMI Method: General Appearance: WD/WN, no apparent distress Eyes: Bilateral Eye Normal Inspection, Bilateral Eye PERRL, Bilateral Eye EOMI HEENT: PERRL/EOMI, normal ENT inspection, pharynx normal Neck: full range of motion, normal inspection Respiratory: chest non-tender, no respiratory distress, no accessory muscle use, decreased breath sounds, crackles (bilat. bases), wheezing Cardiovascular: normal peripheral pulses, irregularly irregular Gastrointestinal: normal bowel sounds, non tender, soft Extremities: normal range of motion, non-tender, normal inspection, no calf tenderness, normal capillary refill, pedal edema (4+) Neurologic/Psychiatric: no motor/sensory deficits, alert, normal mood/affect, oriented x 3 Skin: normal color, warm/dry Progress/Results/Core Measures Suspected Sepsis SIRS Temperature: Pulse: Respiratory Rate: Laboratory Tests 09/27/20 12:08: White Blood Count 6.0 Blood Pressure / Mean: Laboratory Tests 09/27/20 12:08: Creatinine 0.78, Platelet Count 127L, Total Bilirubin 1.5H Results/Orders Lab Results Laboratory Tests Test 09/27/20 12:08 Range/Units White Blood Count 6.0 4.3-11.0 10^3/uL Red Blood Count 3.07 L 4.30-5.52 10^6/uL Hemoglobin 9.3 L 13.3-17.7 g/dL Hematocrit 29 L 40-54 % Mean Corpuscular Volume 93 80-99 fL Mean Corpuscular Hemoglobin 30 25-34 pg Mean Corpuscular Hemoglobin Concent 33 32-36 g/dL Red Cell Distribution Width 15.6 H 10.0-14.5 % Platelet Count 127 L 130-400 10^3/uL Mean Platelet Volume 10.1 9.0-12.2 fL Immature Granulocyte % (Auto) 0 % Neutrophils (%) (Auto) 66 42-75 % Lymphocytes (%) (Auto) 18 12-44 % Monocytes (%) (Auto) 10 0-12 % Eosinophils (%) (Auto) 5 0-10 % Basophils (%) (Auto) 1 0-10 % Neutrophils # (Auto) 4.0 1.8-7.8 10^3/uL Lymphocytes # (Auto) 1.1 1.0-4.0 10^3/uL Monocytes # (Auto) 0.6 0.0-1.0 10^3/uL Eosinophils # (Auto) 0.3 0.0-0.3 10^3/uL Basophils # (Auto) 0.0 0.0-0.1 10^3/uL Immature Granulocyte # (Auto) 0.0 0.0-0.1 10^3/uL D-Dimer 5.46 H 0.00-0.49 UG/ML Sodium Level 128 L 135-145 MMOL/L Potassium Level 3.3 L 3.6-5.0 MMOL/L Chloride Level 95 L 98-107 MMOL/L Carbon Dioxide Level 22 21-32 MMOL/L Anion Gap 11 5-14 MMOL/L Blood Urea Nitrogen 21 H 7-18 MG/DL Creatinine 0.78 0.60-1.30 MG/DL Estimat Glomerular Filtration Rate > 60 BUN/Creatinine Ratio 27 Glucose Level 105 70-105 MG/DL Calcium Level 9.1 8.5-10.1 MG/DL Corrected Calcium 9.5 8.5-10.1 MG/DL Total Bilirubin 1.5 H 0.1-1.0 MG/DL Aspartate Amino Transf (AST/SGOT) 22 5-34 U/L Alanine Aminotransferase (ALT/SGPT) 18 0-55 U/L Alkaline Phosphatase 155 H 40-136 U/L Troponin I < 0.028 <0.028 NG/ML B-Type Natriuretic Peptide 362.8 H <100.0 PG/ML Total Protein 7.0 6.4-8.2 GM/DL Albumin 3.5 3.2-4.5 GM/DL My Orders Orders - ISADORA,STORMY D BLINTZE ROLLER Cbc With Automated Diff (09/27/20 12:01) Comprehensive Metabolic Panel (09/27/20 12:01) Ekg Tracing (09/27/20 12:01) BNP (09/27/20 12:01) Chest 1 View, Ap/Pa Only (09/27/20 12:01) Troponin I (09/27/20 12:01) Albuterol/Ipra Inhalation Soln (Duoneb I (09/27/20 12:30) Svn Small Volume Nebulizer (09/27/20 12:29) Echo W Doppler/Color Flow (09/27/20 12:56) Fibrin Degradation Products (09/27/20 13:15) Ct Angio Chest W (09/27/20 13:50) Iohexol Injection (Omnipaque 350 Mg/Ml 1 (09/27/20 14:15) Received Contrast (Hold Metformin- Contr (09/27/20 14:15) Ns (Ivpb) (Sodium Chloride 0.9% Ivpb Bag (09/27/20 14:15) Sodium Chloride Flush (Catheter Flush Sy (09/27/20 14:15) Furosemide Injection (Lasix Injection) (09/27/20 15:15) Scalehouse Attendant Consult (09/27/20 15:31) Potassium Chloride (Tablet) (K Dur Table (09/27/20 15:45) Potassium Chloride (Tablet) (K Dur Table (09/27/20 15:30) Medications Given in ED Vital Signs/I&O 09/27/20 09/27/20 09/27/20 09/27/20 11:55 12:42 13:23 16:01 Temp 36.8 Pulse 92 84 75 Resp 20 18 18 B/P (MAP) 109/73 (85) 113/81 (92) 125/61 Pulse Ox 94 97 97 94 O2 Delivery Nasal Cannula Nasal Cannula Nasal Cannula Nasal Cannula O2 Flow Rate 5.00 5.00 5.00 5.00 Capillary Refill : Progress Note : Progress Note Patient examined upon arrival. He is in no acute respiratory distress while at rest. He was placed on 5 L per wall O2, and he is currently sating at 98%. Orders placed for basic labs, BNP, chest x-ray, and troponin. He has 4+ pitting edema, applied kathy wraps to BLE. Labs reviewed, he has WBC-3.07 and Hg-9.3, likely d/t his CA and immunotherapy, NA-128, K-3.3, BUN-21, Creat-0.78. TB-1.5, BNP-362.8, trop <0.028. His chest x- ray shows marked cardiomegaly. 1250: ECHO ordered at this time d/t size of heart on x-ray, concerns for pericardial effusion. Pt. states his last ECHO was over a year ago. 1312: Case discussed with Dr. Lackey. Requested to add D-dimer and CTa chest if elevated. 1350: D-dimer returned and noted at 5.46. Discussed elevated result with patient and spouse and recommendations for CTa chest to evaluate for PE. Risk/benefits reviewed. He is agreeable with exam. Orders placed for CTa. 1530: Results from CTa chest reviewed and show no evidence of PE. However there is unfavorable change compared to the prior study with a new large pericardial effusion as well as a haybe-tt-flrcnbkw left pleural effusion and some minimal right pleural fluid. The patient's primary lung mass in the right lower lobe has increased in size compared to the prior study. 1557: Reviewed findings with Dr. Rodirgues with cardiology. Recommended giving Lasix and transferring patient to thoracic surgeon for pericardiocentesis and/or pericardial window as this likely represents a malignant effusion. 1600: Updated Dr. Lackey with results and Dr. Rodrigues's recommendations. 1605: Reviewed findings of ECHO and CTa chest with patient and spouse, and thoroughly discussed recommendation for transfer for pericardiocentesis for symptom relief. Reviewed procedure with patient and discussed that this could provide some relief of his symptoms. However, he declined transfer stating he is ok with taking Lasix but he does not want a pericardiocentesis. Spouse inquired about his immunotherapy treatment with the cancer center as he was due to have his second dose today. Will touch base with Dr. Joe with oncology. Case reviewed with Dr. Joe. Recommended transferring patient to thoracic surgeon for procedure and states that once patient is stable he can resume his therapy. Patient and family can call him with any concerns/questions. Discussed recommendations of having pericardiocentesis again with patient as this will provide him with relief and informed him that he can resume his immunotherapy once he is stable. Patient refused stating he does not want to have procedure. States "I just want to go home". Discussed that we can give Lasix, however this is unlike to improve his symptoms and he has poor prognosis if he declines transfer. He acknowledge recommendations and states he is agreeable with taking Lasix, but continued to decline transfer. Social service consult placed to discuss home care/hospice options. Social service in room with patient to review our recommendations and hospice options. States patient appeared very agitated and that he was willing to have her make outpatient appointment with his PCP. Reviewed discharge plan with patient and spouse and informed that if he decides to change his mind at anytime he can come to the ER and will transfer him to appropriate level of care. Expressed gratitude and informed me they were ready to discharge. VSS at discharge. ECG Initial ECG Impression Date: Sep 27, 2020 Initial ECG Impression Time: 12:01 Initial ECG Rate: 78 Initial ECG Rhythm: A Fib/Flutter Initial ECG Intervals Non specific intraventricular conduction delay. Initial ECG Impression: Atrial Fibrillation Diagnostic Imaging Diagonstic Imaging: Xray Plain Films/CT/US/NM/MRI: chest Comments NAME: JB PINEDO [facility] REC#: [id number] PT STATUS: REG ER : 1950 PHYSICIAN: PEREZ MUIR BLINTZE ROLLER ADMIT DATE: 09/27/20/ER Draft Date of Exam:09/27/20 CHEST 1 VIEW, AP/PA ONLY HISTORY: Leg swelling and shortness of air. History of lung cancer. COMPARISON: 09/08/2020 TECHNIQUE: Frontal view of the chest. FINDINGS: There is marked cardiomegaly which appears increased since the prior exam. There is a left-sided Port-A-Cath and the tip is not well seen but appears to be at the right atrium. There are interstitial and airspace opacities at the lung bases bilaterally, which appear increased since the prior exam. Mild airspace opacities are seen along the peripheral right lung. Scarring and emphysematous changes are seen in the lung apices. No pneumothorax or pleural effusion is seen. IMPRESSION: 1. Increased interstitial and airspace opacities in the lung bases, may be due to infiltrate or worsening fibrotic change. 2. Marked cardiomegaly, appears increased since the prior exam. If there is concern for pericardial effusion, consider echocardiogram. Dictated on workstation # [id number] Dict: 09/27/20 1225 Trans: 09/27/20 1230 [id number] Interpreted by: ANGÉLICA WASHINGTON MD Electronically signed by: Reviewed: Reviewed by Me Diagonstic Imaging: CT Plain Films/CT/US/NM/MRI: chest Comments NAME: JB PINEDO [facility] REC#: [id number] PT STATUS: REG ER : 1950 PHYSICIAN: PEREZ MUIR BLINTZE ROLLER ADMIT DATE: 09/27/20/ER Draft Date of Exam:09/27/20 CT ANGIO CHEST W INDICATION: Lung cancer, elevated D-dimer. Shortness of breath. TECHNIQUE: Multiple contiguous axial images were obtained through the chest after uneventful bolus administration of intravenous contrast. 3D reconstructed CTA MIP acquisitions were also performed. Auto Exposure Controls were utilized during the CT exam to meet ALARA standards for radiation dose reduction. Comparison is made to the prior CT chest 06/20/2020. Portions of the study are limited by motion artifact. The pulmonary parenchymal vessels however are well-opacified with no CT evidence of pulmonary emboli. There is no aortic dissection or aneurysm. There is adverse change compared to the previous study. There is a new large pericardial effusion. There is a sigbt-rb-zttiemkn left pleural effusion with a minimal right pleural effusion. The mass in the right lower lobe along the medial border anteriorly now measures about 5.8 x 3.7 cm, compared to 4.1 x 3.1 cm previously. There are multiple mildly prominent nodes in the mediastinum which are likely metastatic, there is a prominent subcarinal mass. This had measured 3.3 x 3.0 cm on the prior study, now measures 5.0 x 3.0 cm. Lung parenchymal windows demonstrate extensive emphysematous changes. There are numerous new pulmonary nodules in both lungs which are likely metastatic. Visualized portions of the upper abdomen demonstrate a moderate amount of ascites. The liver is diffusely enlarged with nodular contour, suggesting cirrhosis. There are some mildly prominent retrocrural nodes which are slightly increased compared to the prior study. There is some thickening of the left adrenal node which appears stable compared to the prior study. There are some mild periportal and periceliac nodes which are of questionable significance but were not present previously. IMPRESSION: No CT evidence of pulmonary emboli or aortic dissection or aneurysm. There is unfavorable change compared to the prior study with a new large pericardial effusion as well as a ziehk-os-vdnrlaxx left pleural effusion and some minimal right pleural fluid. The patient's primary lung mass in the right lower lobe has increased in size compared to the prior study, there are numerous new pulmonary nodules in both lungs which are likely metastatic. There is increasing adenopathy in the subcarinal region as well as in the mediastinum elsewhere. There is new ascites with findings compatible with likely cirrhotic liver. There are some new increased nodes in the periceliac and periportal regions which may be metastatic. There is severe emphysematous change. Dictated on workstation # [id number] Dict: 09/27/20 1434 Trans: 09/27/20 1446 [facility] [id number] Interpreted by: LEATHA TAVERA MD Electronically signed by: Reviewed: Reviewed by Me Departure Communication (Admissions) Time/Spoke to Consulting Phy: 13:[address] Lackey, requested D-dimer be added at this time, to update when lab results. Impression Primary Impression: Acute pericardial effusion Additional Impressions: Metastatic lung cancer (metastasis from lung to other site) Peripheral edema Disposition: 01 HOME, SELF-CARE Condition: Stable Departure-Patient Inst. Decision time for Depature: 15:31 Referrals: NO,LOCAL PHYSICIAN (PCP) Primary Care Physician TAMMY ROQUE (Family) Primary Care Physician Patient Instructions: Pericardial Effusion, Lung Cancer (DC) Add. Discharge Instructions: Plan: 1. Discharge home. 2. Follow up with your primary care provider later this week to evaluate kidney function. Please call the Cancer Center with your decision to continue treatment. 3. Take Lasix and potassium daily as directed. 4. Return to ER for any concerning or worsening symptoms. Scripts Potassium Chloride (Klor-Con 10) 10 Meq Tablet.er 10 MEQ PO DAILY for 14 Days, #14 TAB 0 Refills Prov: PEREZ MUIR BLINTZE ROLLER 09/27/20 Furosemide (Furosemide) 20 Mg Tablet 20 MG PO DAILY for 14 Days, #14 TAB 0 Refills Prov: PEREZ MUIR BLINTZE ROLLER 09/27/20 PEREZ MUIR BLINTZE ROLLER Sep 27, 2020 11:57
[2020-09-27 12:15] LABS: EOSINOPHILS % (AUTO) 5 % (0-10); HEMATOCRIT 29 % (40-54); HEMOGLOBIN 9.3 g/dL (13.3-17.7); MEAN CORPUSCULAR HEMOGLOBIN 30 pg (25-34); MEAN CORPUSCULAR HGB CONC 33 g/dL (32-36); MEAN CORPUSCULAR VOLUME 93 fL (80-99); MEAN PLATELET VOLUME 10.1 fL (9.0-12.2)
[2020-09-27 12:17] LABS: BASOPHILS % (AUTO) 1 % (0-10); EOSINOPHILS # (AUTO) 0.3 10^3/uL (0.0-0.3); LYMPHOCYTES # (AUTO) 1.1 10^3/uL (1.0-4.0); LYMPHOCYTES % (AUTO) 18 % (12-44); MONOCYTES # (AUTO) 0.6 10^3/uL (0.0-1.0); MONOCYTES % (AUTO) 10 % (0-12); NEUTROPHILS % (AUTO) 66 % (42-75); PLATELET COUNT 127 10^3/uL (130-400)
[2020-09-27 12:29] LABS: ALBUMIN 3.5 GM/DL (3.2-4.5); CHLORIDE 95 MMOL/L (98-107); POTASSIUM 3.3 MMOL/L (3.6-5.0); SODIUM 128 MMOL/L (135-145)
[2020-09-27 12:30] LABS: CALCIUM 9.1 MG/DL (8.5-10.1)
[2020-09-27] MEDS ORDERED: RT-ALBUTEROL/IPRATROPIUM 3 ML (DUONEB) VIAL INH ONE (12:30)
--- NOTE | 2020-09-27 12:30 | Diagnostic Imaging Report ---
HISTORY: Leg swelling and shortness of air. History of lung cancer. COMPARISON: 09/08/2020 TECHNIQUE: Frontal view of the chest. FINDINGS: There is marked cardiomegaly which appears increased since the prior exam. There is a left-sided Port-A-Cath and the tip is not well seen but appears to be at the right atrium. There are interstitial and airspace opacities at the lung bases bilaterally, which appear increased since the prior exam. Mild airspace opacities are seen along the peripheral right lung. Scarring and emphysematous changes are seen in the lung apices. No pneumothorax or pleural effusion is seen. IMPRESSION: 1. Increased interstitial and airspace opacities in the lung bases, may be due to infiltrate or worsening fibrotic change. 2. Marked cardiomegaly, appears increased since the prior exam. If there is concern for pericardial effusion, consider echocardiogram. Dictated by: Dictated on workstation # [id number]
[2020-09-27 12:31] LABS: GLUCOSE 105 MG/DL (70-105)
[2020-09-27 12:32] LABS: CARBON DIOXIDE 22 MMOL/L (21-32)
[2020-09-27 12:33] LABS: BILIRUBIN,TOTAL 1.5 MG/DL (0.1-1.0)
[2020-09-27 12:35] LABS: ALKALINE PHOSPHATASE 155 U/L (40-136); CREATININE SERUM 0.78 MG/DL (0.60-1.30); GFR ESTIMATED > 60
[2020-09-27 12:36] LABS: BUN/CREATININE RATIO 27
[2020-09-27 12:38] LABS: ALANINE AMINOTRANSFERASE 18 U/L (0-55)
[2020-09-27] MEDS ORDERED: IOHEXOL 350 MG/ML 100 ML (OMNIPAQUE 350) VIAL IV ONE (14:15)
[2020-09-27] MEDS ORDERED: HOLD METFORMIN - RECEIVED CONTRAST 20 ML VIAL IV SCH (14:15)
[2020-09-27] MEDS ORDERED: NS 100 ML (IVPB) BAG IV ONE (14:15)
[2020-09-27] MEDS ORDERED: CATHETER FLUSH 10 ML SYR IV PRN (14:15)
--- NOTE | 2020-09-27 14:46 | Diagnostic Imaging Report ---
INDICATION: Lung cancer, elevated D-dimer. Shortness of breath. TECHNIQUE: Multiple contiguous axial images were obtained through the chest after uneventful bolus administration of intravenous contrast. 3D reconstructed CTA MIP acquisitions were also performed. Auto Exposure Controls were utilized during the CT exam to meet ALARA standards for radiation dose reduction. Comparison is made to the prior CT chest 06/20/2020. Portions of the study are limited by motion artifact. The pulmonary parenchymal vessels however are well-opacified with no CT evidence of pulmonary emboli. There is no aortic dissection or aneurysm. There is adverse change compared to the previous study. There is a new large pericardial effusion. There is a vbkxx-lo-mbxyxaml left pleural effusion with a minimal right pleural effusion. The mass in the right lower lobe along the medial border anteriorly now measures about 5.8 x 3.7 cm, compared to 4.1 x 3.1 cm previously. There are multiple mildly prominent nodes in the mediastinum which are likely metastatic, there is a prominent subcarinal mass. This had measured 3.3 x 3.0 cm on the prior study, now measures 5.0 x 3.0 cm. Lung parenchymal windows demonstrate extensive emphysematous changes. There are numerous new pulmonary nodules in both lungs which are likely metastatic. Visualized portions of the upper abdomen demonstrate a moderate amount of ascites. The liver is diffusely enlarged with nodular contour, suggesting cirrhosis. There are some mildly prominent retrocrural nodes which are slightly increased compared to the prior study. There is some thickening of the left adrenal node which appears stable compared to the prior study. There are some mild periportal and periceliac nodes which are of questionable significance but were not present previously. IMPRESSION: No CT evidence of pulmonary emboli or aortic dissection or aneurysm. There is unfavorable change compared to the prior study with a new large pericardial effusion as well as a sijkz-ba-knxubdyy left pleural effusion and some minimal right pleural fluid. The patient's primary lung mass in the right lower lobe has increased in size compared to the prior study, there are numerous new pulmonary nodules in both lungs which are likely metastatic. There is increasing adenopathy in the subcarinal region as well as in the mediastinum elsewhere. There is new ascites with findings compatible with likely cirrhotic liver. There are some new increased nodes in the periceliac and periportal regions which may be metastatic. There is severe emphysematous change. Dictated by: Dictated on workstation # [id number]
[2020-09-27] MEDS ORDERED: FUROSEMIDE 40 MG/4 ML INJ (LASIX) IVP ONE (15:15)
[2020-09-27] MEDS ORDERED: KCL 20 MEQ TAB (K-DUR) PO ONE ×2 (15:30→15:45)
[2020-09-27] MEDS ORDERED: POTA10TA6 PO (15:35)
[2020-09-27] MEDS ORDERED: FURO20TA4 PO (15:35)
[2020-09-27 16:01] VITALS: BP 125/61
== END 2020-09-27 16:01 | disposition home or self-care (01) ==
LOC: EDUNIT# 11:36 → ER 11:37
DX: C34.90 Malignant neoplasm of unspecified part of unspecified bronchus or lung (principal); C78.7 Secondary malignant neoplasm of liver and intrahepatic bile duct; I31.3 Pericardial effusion (noninflammatory); R60.0 Localized edema; I10 Essential (primary) hypertension; I48.91 Unspecified atrial fibrillation; J44.9 Chronic obstructive pulmonary disease, unspecified; Z85.820 Personal history of malignant melanoma of skin; Z99.81 Dependence on supplemental oxygen; Z79.01 Long term (current) use of anticoagulants; Z88.6 Allergy status to analgesic agent; Z88.8 Allergy status to other drugs, medicaments and biological substances
CPT/HCPCS: 36415; 71045; 71275; 80053; 83880; 84484; 85025; 85379; 93005; 93306; 94640